=== PATIENT | male | born 1990 | race Caucasian/White ===

== ENCOUNTER 2019-12-11 12:35 | Emergency (ER) | payer SELFPAY ==
[2019-12-11] MEDS ORDERED: LIDOCAINE 1% INJ-PF (10 MG/ML) 30 ML SDV INJ ONE (12:47)
[2019-12-11] MEDS ORDERED: DOXYCYCLINE HYCLATE 100 MG TABLET PO ONE (13:01)
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
[2019-12-11] MEDS ORDERED: ACETAMINOPHEN 325 MG TABLET PO ONE (13:25)
--- NOTE | 2019-12-11 14:08 | RADIOLOGY REPORT (SQ) ---
EXAM DESCRIPTION: CT ORBIT/SELLA WITHOUT IMAGES COMPLETED DATE/TIME: 12/11/2019 1:50 pm REASON FOR STUDY: Pain behind the right eye after fishhook removed right with eyebrow COMPARISON: None. TECHNIQUE: Noncontrasted images through the orbits windowed for bone and soft tissue. Additional co arlen and sagittal reconstructed images reviewed. All images stored on PACS. All CT scanners at this facility use dose modulation, iterative reconstruction, and/or weight based d osing when appropriate to reduce radiation dose to as low as reasonably achievable (ALARA). [facility]: Dose Right [facility]: CareDose [facility]: Dose Right [facility]: Teradose 4D [facility]: [employer] RADIATION DOSE: CT Rad equipment meets quality standard of care and radiation dose reduction techniq ues were employed. CTDIvol: 30.4 mGy. DLP: 528 mGy-cm. mGy. LIMITATIONS: None. FINDINGS: ORBITS: Intact. No fracture. Symmetric intact globes and retroorbital soft tissues. The re is a small amount of gas at the preseptal space medial to the right globe. PARANASAL SINUSES: No air-fluid levels. Small mucous retention cysts/polyps at the bilateral maxilla ry sinuses. SOFT TISSUES: Soft tissue irregularity and small amount of subcutaneous emphysema lateral to the righ t orbit, probably corresponding to known laceration. No radiopaque foreign body is identified. INFERIOR BRAIN: Limited view. No acute findings. IMPRESSION: Soft tissue laceration lateral to the right orbit. No acute orbital fracture. Small am ount of gas at the preseptal space medial to the right globe. TECHNICAL DOCUMENTATION: JOB ID: [id number] Quality ID # [id number]: Final reports with documentation of one or more dose reduction techniques (e.g., Au tomated exposure control, adjustment of the mA and/or kV according to patient size, use of iterative reconstruction technique) 2010 [employer]- All Rights Reserved Reading location - IP/workstation name: [email or web address]
[2019-12-11] MEDS ORDERED: TETRACAINE HCL 0.5% OPH SOLN 4 ML ONE (14:42)
[2019-12-11] MEDS ORDERED: CYCLOPENTOLATE HCL 1% OPH SOLN 2 ML OS ONE (15:16)
[2019-12-11] MEDS ORDERED: ERYTHROMYCIN 0.5% OPH OINTMENT 3.5 GM (ER DISP) OS PRN (15:17)
[2019-12-11] MEDS ORDERED: CYCLOPENTOLATE HCL 1% OPH SOLN 2 ML OD ONE (15:18)
[2019-12-11] MEDS ORDERED: ERYTHROMYCIN 0.5% OPH OINTMENT 3.5 GM (ER DISP) OD PRN (15:18)
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
[2019-12-11 15:56] VITALS: BP 129/66
== END 2019-12-11 15:55 | disposition home or self-care (01) ==
LOC: ER 12:35
DX: S01.141A Puncture wound with foreign body of right eyelid and periocular area, initial encounter (principal); W45.8XXA Other foreign body or object entering through skin, initial encounter; Y93.39 Activity, other involving climbing, rappelling and jumping off; Y92.814 Boat as the place of occurrence of the external cause; H53.141 Visual discomfort, right eye; Z91.012 Allergy to eggs; Z72.0 Tobacco use
CPT/HCPCS: 99284; 70480; J3490 ×2